=== PATIENT | female | born 1965 | race Caucasian/White ===

== ENCOUNTER 2017-05-31 21:38 | Inpatient (IN) | payer BC ==
[~2017-05-31] VITALS: Ht 160 cm; Wt 51.7 kg
[~2017-05-31 21:38] MED LIST: ADVIL,NUPRIN,M200 MG PO; MULTIPLE VITAM1 EAC1 PO; ZANTAC150 MG PO
[2017-06-01 09:57] VITALS: BP 116/70
[2017-06-01 14:27] LABS: INTERNAL CONTROL VALID? YES
[2017-06-01 19:09] LABS: HEMATOCRIT 32.6 % (36.0-46.0); MCH 31.1 PG (29.0-34.0); MCV 91.3 FL (83-99); MEAN PLAT.VOLUME 9.4 uM^3 (9.5-12.4); PLATELET COUNT 233 K/uL (156-360); RBC DIS.WIDTH-CV 12.7 % (11.8-14.6); RBC DIS.WIDTH-SD 42.1 % (39-53); RED BLOOD COUNT 3.57 M/uL (3.80-5.20); WHITE BLOOD COUNT 11.2 K/uL (4.1-10.2)
[2017-06-01 19:34] LABS: ANION GAP 13 MEQ/L (2-14); CHLORIDE 104 MEQ/L (99-109); GFR ESTIMATE (CALCULATED) > 59 mL/min/; GLUCOSE 202 mg/dL (70-99); POTASSIUM 4.1 MEQ/L (3.7-5.4); SAMPLE HEMOLYSIS CHECK 0; SAMPLE ICTERIC CHECK 0; SAMPLE LIPEMIA CHECK 0; SODIUM 138 MEQ/L (136-147); UREA NITROGEN (BUN) 10 mg/dL (9-23)
[2017-06-01 20:29] VITALS: BP 95/53
[2017-06-02] VITALS (7 sets, daily range): BP systolic 95–111; BP diastolic 54–60
[2017-06-02 07:46] LABS: MCH 30.5 PG (29.0-34.0); MCHC 33.3 G/DL (30.0-36.0); MCV 91.4 FL (83-99); MEAN PLAT.VOLUME 9.6 uM^3 (9.5-12.4); PLATELET COUNT 269 K/uL (156-360); RBC DIS.WIDTH-SD 43.4 % (39-53); RED BLOOD COUNT 3.61 M/uL (3.80-5.20); WHITE BLOOD COUNT 8.9 K/uL (4.1-10.2)
[2017-06-02 08:12] LABS: ANION GAP 5 MEQ/L (2-14); CHLORIDE 105 MEQ/L (99-109); GFR ESTIMATE (CALCULATED) > 59 mL/min/; GLUCOSE 84 mg/dL (70-99); POTASSIUM 4.6 MEQ/L (3.7-5.4); SAMPLE HEMOLYSIS CHECK 0; SAMPLE ICTERIC CHECK 0; SAMPLE LIPEMIA CHECK 0; SODIUM 141 MEQ/L (136-147); UREA NITROGEN (BUN) 7 mg/dL (9-23)
[2017-06-03 04:23] VITALS: BP 117/65
[2017-06-03 07:15] VITALS: BP 113/73
[2017-06-03 07:50] LABS: HEMATOCRIT 29.3 % (36.0-46.0); MCHC 33.8 G/DL (30.0-36.0); MCV 91.8 FL (83-99); MEAN PLAT.VOLUME 9.6 uM^3 (9.5-12.4); PLATELET COUNT 205 K/uL (156-360); RBC DIS.WIDTH-CV 13.2 % (11.8-14.6); RBC DIS.WIDTH-SD 44.5 % (39-53); RED BLOOD COUNT 3.19 M/uL (3.80-5.20); WHITE BLOOD COUNT 5.9 K/uL (4.1-10.2)
[2017-06-03 08:15] LABS: ANION GAP 6 MEQ/L (2-14); CHLORIDE 108 MEQ/L (99-109); GFR ESTIMATE (CALCULATED) > 59 mL/min/; GLUCOSE 89 mg/dL (70-99); POTASSIUM 4.8 MEQ/L (3.7-5.4); SAMPLE HEMOLYSIS CHECK 0; SAMPLE ICTERIC CHECK 0; SAMPLE LIPEMIA CHECK 0; SODIUM 143 MEQ/L (136-147); UREA NITROGEN (BUN) 13 mg/dL (9-23)
[2017-06-03] MEDS ORDERED: TRAMADOL HCL50 MG PO (09:19)
== END 2017-06-03 11:10 | disposition home or self-care (01) | DRG 743 ==
LOC: ENRESERV 21:38 → 2SOUTH 06-01 08:54 → ENRESERV 06-01 13:58 → 2SOUTH 06-01 14:56 → 2EAST 06-01 16:13
PROVIDERS: Obstetrics & Gynecology Gynecologic Oncology
DX: N80.3 Endometriosis of pelvic peritoneum (principal); N13.5 Crossing vessel and stricture of ureter without hydronephrosis; N80.1 Endometriosis of ovary; N80.5 Endometriosis of intestine; Z83.3 Family history of diabetes mellitus; R97.1 Elevated cancer antigen 125 [CA 125]; N91.5 Oligomenorrhea, unspecified; Z80.0 Family history of malignant neoplasm of digestive organs; N83.201 Unspecified ovarian cyst, right side
CPT/HCPCS: 36415; 80048; 84703; 85027; 86900; 86901; 86920; 88305; 88307; J0131; J0690; J1100; J1170; J1650; J1885; J2405; J2550; J2710; J2765; J3010; J7120

== ENCOUNTER 2017-06-12 19:26 | Emergency (ER) | payer BC ==
[~2017-06-12] VITALS: Ht 160 cm; Wt 52.3 kg
[~2017-06-12 19:26] MED LIST changes: +TRAMADOL HCL50 MG PO
[2017-06-12 20:24] LABS: HEMATOCRIT 32.4 % (36.0-46.0); MCH 29.9 PG (29.0-34.0); MCHC 33.6 G/DL (30.0-36.0); MEAN PLAT.VOLUME 9.3 uM^3 (9.5-12.4); RBC DIS.WIDTH-CV 12.4 % (11.8-14.6); RBC DIS.WIDTH-SD 40.5 % (39-53); RED BLOOD COUNT 3.64 M/uL (3.80-5.20); WHITE BLOOD COUNT 8.3 K/uL (4.1-10.2)
[2017-06-12 20:25] LABS: PLATELET COUNT 352 K/uL (156-360)
[2017-06-12 20:32] LABS: CHLORIDE 101 mEq/L (99-109); SODIUM 138 mEq/L (136-147)
[2017-06-12 20:34] LABS: GLUCOSE 120 mg/dL (70-99)
[2017-06-12 20:36] LABS: ANION GAP 10 MEQ/L (2-14); TOTAL BILIRUBIN 0.3 mg/dL (0.0-1.0)
[2017-06-12 20:38] LABS: ALKALINE PHOSPHATASE 87 IU/L (3-129); GFR ESTIMATE (CALCULATED) > 59 mL/min/
[2017-06-12 20:39] LABS: UREA NITROGEN (BUN) 13 mg/dL (9-23)
[2017-06-12 20:41] LABS: LIPASE 23 U/L (1.0-51.0)
[2017-06-12 20:46] LABS: ADD MIUA? YES; BILIRUBIN NEGATIVE; BLOOD MODERATE; COLOR COLORLESS ((YELLOW)); GLUCOSE (STRIP) NEGATIVE; KETONES NEGATIVE; LEUKOCYTES NEGATIVE; NITRITE NEGATIVE; PROTEIN (STRIP) NEGATIVE; SPECIFIC GRAVITY 1.004 (1.000-1.030); UROBILINOGEN 0.2 MG/DL (0.2-1.0)
[2017-06-12 20:59] LABS: BACTERIA RARE /HPF; EPITHELIAL CELLS NONE SEEN /HPF; MUCUS NONE SEEN /LPF; RED BLOOD CELLS NONE SEEN /HPF (0-5); WHITE BLOOD CELLS NONE SEEN /HPF (0-5)
[2017-06-12] MEDS ORDERED: PERCOCET 5/31 TABLET PO (21:22)
[2017-06-12] MEDS ORDERED: ZOFRAN ODT4 MG PO (21:22)
[2017-06-12 22:34] VITALS: BP 97/60
== END 2017-06-12 22:38 | disposition home or self-care (01) ==
LOC: EME 19:26
PROVIDERS: Nurse Practitioner Family
DX: R10.30 Lower abdominal pain, unspecified (principal); B34.9 Viral infection, unspecified; K21.9 Gastro-esophageal reflux disease without esophagitis; Z90.710 Acquired absence of both cervix and uterus
CPT/HCPCS: 74177; 80053; 81003; 83690; 85027; 99281; 99285; J2270; J2405; J3010; J7030